=== PATIENT | female | born 1930 | race Caucasian/White ===

== ENCOUNTER 2019-01-20 09:11 | Inpatient (IN) | payer OTHER ==
[~2019-01-20] VITALS: Ht 139.7 cm; Wt 49.0 kg
[2019-01-20 09:15] VITALS: BP_SYST 132
[2019-01-20] MEDS ORDERED: BACITRACIN 1 GM OINT TP ONE (10:00)
[2019-01-20] MEDS ORDERED: MIDAZOLAM HCL 5 MG/5 ML VIAL IVP ONE ×2 (11:00→16:30)
[2019-01-20] MEDS ORDERED: KETOROLAC TROMETHAMINE 15 MG VIAL IVP ONE (12:30)
[2019-01-20] MEDS ORDERED: NACL 0.9% 1,000 ML IV ONE (13:15)
[2019-01-20] MEDS ORDERED: ETOMIDATE 20 MG/ 10 ML VIAL (AMIDATE) IVP ONE (13:15)
[2019-01-20 14:57] LABS: BASOPHILS % (AUTO) 0.9 % (0.0-2.0); EOSINOPHILS # (AUTO) 0.1 K/uL (0.0-0.4); EOSINOPHILS % (AUTO) 2.9 % (0.0-4.0); HEMOGLOBIN 12.6 g/dL (12.0-16.0); LYMPHOCYTES # (AUTO) 0.8 K/uL (1.0-5.5); LYMPHOCYTES % (AUTO) 15.7 % (20.5-51.5); MEAN CORPUSCULAR HEMOGLOBIN 35 pg (27-31); MEAN CORPUSCULAR HGB CONC 34 % (32-36); MEAN CORPUSCULAR VOLUME 102 fL (79.0-98.0); MONOCYTES # (AUTO) 0.6 K/uL (0.0-1.0); MONOCYTES % (AUTO) 12.4 % (1.7-9.3); NEUTROPHILS # (AUTO) 3.4 K/uL (1.8-7.7); NEUTROPHILS % (AUTO) 68.1 % (40.0-70.0); PLATELET COUNT (AUTO) 222 K/uL (130-430); RED BLOOD CELL COUNT(AUTO) 3.63 MIL/uL (4.2-6.2)
[2019-01-20 15:02] LABS: ANION GAP 4 (5-15); CALCIUM 8.3 mg/dL (8.4-11.0); CHLORIDE 108 mmol/L (98-107); CREATININE 0.93 mg/dL (0.55-1.30); GLUCOSE 82 mg/dL (70-99); POTASSIUM 3.9 mmol/L (3.5-5.1); SODIUM SERUM 138 mmol/L (136-145); UREA NITROGEN, BLOOD 20 mg/dL (8-21)
[2019-01-20 15:07] LABS: ALANINE AMINOTRANSFERASE 20 U/L (12-78); ALBUMIN 3.2 g/dL (3.4-4.8); ASPARTATE AMINOTRANSFERASE 38 U/L (10-37); TOTAL BILIRUBIN 0.8 mg/dL (0.0-1.0)
[2019-01-20 15:08] LABS: PROTHROMBIN TIME 10.4 SECS (9.5-12.5)
[2019-01-20] MEDS ORDERED: POLY17PO4 PO (15:28)
[2019-01-20] MEDS ORDERED: VITD2000 PO (15:28)
[2019-01-20] MEDS ORDERED: ACET-2165 PO (15:28)
[2019-01-20] MEDS ORDERED: LEVO100T9 PO (15:28)
[2019-01-20] MEDS ORDERED: MIRA50TA PO (15:28)
[2019-01-20] MEDS ORDERED: LIDOCAINE 4% PATCH TD (15:28)
[2019-01-20 15:43] VITALS: BP_SYST 156
[2019-01-20 16:02] LABS: BILIRUBIN,URINE NEGATIVE (NEGATIVE); BLOOD, URINE NEGATIVE (NEGATIVE); CLARITY/URINE CLEAR (CLEAR); GLUCOSE,URINE NEGATIVE (NEGATIVE); KETONES,URINE NEGATIVE (NEGATIVE); LEUKOCYTE ESTERASE ,URINE NEGATIVE (NEGATIVE); NITRITE, URINE NEGATIVE (NEGATIVE); PROTEIN URINE NEGATIVE (NEGATIVE); UROBILINOGEN,URINE 0.2 (0.2-1.0)
[2019-01-20 16:17] LABS: COLOR,URINE STRAW (YELLOW)
[2019-01-20] MEDS ORDERED: SEVOFLURANE 15 MIN GAS INH ONE (16:30)
[2019-01-20] MEDS ORDERED: ROPIVACAINE HCL/PF 5 MG/ML 0.5% 30 ML VIAL INJ ONE (16:30)
[2019-01-20] MEDS ORDERED: LR 1,000 ML IV.SOLN IV ONE (16:30)
[2019-01-20] MEDS ORDERED: ONDANSETRON HCL 4 MG/2 ML VIAL IVP ONE (16:30)
[2019-01-20] MEDS ORDERED: fentaNYL CITRATE 250 MCG/5 ML AMP IV ONE (16:30)
[2019-01-20] MEDS ORDERED: PROPOFOL 200MG/ 20ML VIAL (DIPRIVAN) IV ONE (16:30)
[2019-01-20] MEDS ORDERED: KETOROLAC TROMETHAMINE 30 MG VIAL IVP ONE (16:30)
[2019-01-20] MEDS ORDERED: ROCURONIUM BROMIDE 10 MG/ML (ZEMURON) IV ONE (16:30)
[2019-01-20] MEDS ORDERED: MORPHINE 4 MG/ML INJ. SYRINGE IVP PRN (17:45)
[2019-01-20] MEDS ORDERED: ACETAMINOPHEN 325 MG TABLET PO PRN (17:45)
[2019-01-20] MEDS ORDERED: ONDANSETRON HCL 4 MG/2 ML VIAL IVP PRN (17:45)
[2019-01-20] MEDS ORDERED: MORPHINE 2 MG/ML INJ. SYRINGE IVP PRN (17:45)
[2019-01-20] MEDS ORDERED: METOCLOPRAMIDE HCL 10 MG/2 ML VIAL IVP PRN (17:45)
[2019-01-20 20:00] VITALS: BP_SYST 124
[2019-01-20] MEDS: LEVOTHYROXINE SODIUM 0.1 MG TABLET PO SCH (23:48)
[2019-01-21 01:43] VITALS: BP_SYST 140
[2019-01-21] MEDS: POLYETHYLENE GLYCOL 3350, 17 GM/ POWD.PACK PO SCH (09:00)
[2019-01-21] MEDS ORDERED: IPRATROPIUM BROM 0.5 MG/2.5 ML VIAL.NEB (ATROVENT) INH PRN (10:00)
[2019-01-21] MEDS ORDERED: ALBUTEROL SULFATE 0.083% 2.5 MG/3 ML VIAL.NEB INH PRN (10:00)
[2019-01-21] MEDS ORDERED: ALBUTEROL SULFATE 0.083% 2.5 MG/3 ML VIAL.NEB INH ONE (10:00)
[2019-01-21] MEDS ORDERED: IPRATROPIUM BROM 0.5 MG/2.5 ML VIAL.NEB (ATROVENT) INH ONE (10:00)
[2019-01-21 10:20] VITALS: BP_SYST 140
[2019-01-21 12:38] VITALS: BP_SYST 161
[2019-01-21 16:26] VITALS: BP_SYST 155
[2019-01-21] MEDS: ALBUTEROL SULFATE 0.083% 2.5 MG/3 ML VIAL.NEB INH SCH ×3 (16:59→23:00)
[2019-01-21] MEDS: IPRATROPIUM BROM 0.5 MG/2.5 ML VIAL.NEB (ATROVENT) INH SCH ×3 (16:59→23:00)
[2019-01-21] MEDS ORDERED: LR 1,000 ML IV SCH (17:44)
[2019-01-21] MEDS ORDERED: MEPERIDINE HCL/PF 25 MG/ML DISP.SYRIN IVP PRN (17:45)
[2019-01-21 20:00] VITALS: BP_SYST 168
[2019-01-21] MEDS ORDERED: hydrALAZINE HCL 25 MG TABLET PO PRN (22:00)
[2019-01-21 23:27] VITALS: BP_SYST 143
[2019-01-22 00:41] VITALS: BP_SYST 157
[2019-01-22] MEDS: IPRATROPIUM BROM 0.5 MG/2.5 ML VIAL.NEB (ATROVENT) INH SCH ×4 (03:00→16:48)
[2019-01-22] MEDS: ALBUTEROL SULFATE 0.083% 2.5 MG/3 ML VIAL.NEB INH SCH ×4 (03:00→16:48)
[2019-01-22] MEDS: LEVOTHYROXINE SODIUM 0.1 MG TABLET PO SCH (06:18)
[2019-01-22 08:17] VITALS: BP_SYST 128
[2019-01-22] MEDS: POLYETHYLENE GLYCOL 3350, 17 GM/ POWD.PACK PO SCH (08:35)
[2019-01-22] MEDS ORDERED: AMOX500C2 PO (09:24)
[2019-01-22 10:51] VITALS: BP_SYST 152
[2019-01-22 15:12] VITALS: BP_SYST 152
[2019-01-22 16:15] VITALS: BP_SYST 158
== END 2019-01-22 18:00 | DRG 563 ==
LOC: SED 09:11 → SMU 15:08
PROVIDERS: ADMIT Internal Medicine Hospice and Palliative Medicine; ATTEND Internal Medicine Hospice and Palliative Medicine
PROC: 0XJ3XZZ Inspection of Left Shoulder Region, External Approach (ICD-10-PCS; 2019-01-20)
PROC: 0PSDXZZ Reposition Left Humeral Head, External Approach (ICD-10-PCS; principal; 2019-01-21 15:30)
DX: S43.015A Anterior dislocation of left humerus, initial encounter (principal); I45.2 Bifascicular block; J44.9 Chronic obstructive pulmonary disease, unspecified; I10 Essential (primary) hypertension; W18.30XA Fall on same level, unspecified, initial encounter; Y93.89 Activity, other specified; Y92.89 Other specified places as the place of occurrence of the external cause; Y99.8 Other external cause status; Z79.899 Other long term (current) drug therapy; Z86.73 Personal history of transient ischemic attack (TIA), and cerebral infarction without residual deficits; Z88.5 Allergy status to narcotic agent; Z88.8 Allergy status to other drugs, medicaments and biological substances
CPT/HCPCS: 36415; 71045; 73030; 76000; 80053; 81003; 85025; 85610-TC; 85730-TC; 86886; 86900; 86901; 87081; 93005; 94640; 94760; 99285; J1885; J2250; J2270; J2405; J2704; J3010; J3490; J7030; J7120; J7613

== ENCOUNTER 2019-03-15 08:32 | Emergency (ER) | payer OTHER ==
[~2019-03-15] VITALS: Ht 157.5 cm; Wt 45.4 kg
[~2019-03-15 08:32] MED LIST: ACET-2165 PO; AMOX500C2 PO; LEVO100T9 PO; LIDOCAINE 4% PATCH TD; MIRA50TA PO; POLY17PO4 PO; VITD2000 PO
[2019-03-15 08:38] VITALS: BP_SYST 153
--- NOTE | 2019-03-15 08:38 | NUR ---
Placed in room 4 . Placed on cardiac nurse specialist, blood pressure machine and pulse oximeter. To gown for exam. Side rails up. Report given to KIZZY Nichols.
--- NOTE | 2019-03-15 08:40 | NUR ---
Patient brought in by ambulance post mechanical fall this morning. Patient is c/o left arm pain, skin tears noted on the left arm. Denied any chest pain, SOB, loss of consciousness, or N/V. Patient is alert and oriented x3, respirations even and unlabored, speaking in full sentences. VSS, pain level 5/10. Informed of the wait time. Instructed to notify ED staff of any changes in condition or worsening of symptoms. Patient verbalized understanding.
--- NOTE | 2019-03-15 09:40 | NUR ---
Patient is resting comfortably in bed, respirations even and unlabored, speaking in full sentences.
--- NOTE | 2019-03-15 09:50 | NUR ---
ER Dr. Webb at bedside examining patient.
--- NOTE | 2019-03-15 10:00 | NUR ---
Skin tears on left arm cleansed with saline water, patted dry and covered with non-adherent dressing, wrapped with coban. Patient tolerated the procedure well.
--- NOTE | 2019-03-15 10:05 | NUR ---
X-ray done at bedside as ordered by Dr. Webb. Patient tolerated the procedure well.
[2019-03-15] MEDS ORDERED: NAPROXEN 250 MG TABLET PO SCH (10:30)
--- NOTE | 2019-03-15 10:40 | NUR ---
Daughter at bedside.
[2019-03-15] MEDS ORDERED: NAPROXEN 250 MG TABLET PO ONE (10:45)
--- NOTE | 2019-03-15 10:45 | NUR ---
Assisted patient in using the bedpan. Urine specimen collected.
[2019-03-15 11:09] VITALS: BP_SYST 153
--- NOTE | 2019-03-15 11:10 | NUR ---
Patient given written and verbal discharge instructions and verbalizes understanding. ER MD discussed with patient the results and treatment provided. Patient in stable condition. ID arm band removed. Rx of Naprosyn given. Patient educated on pain management and to follow up with PMD. Pain Scale 0/10. Opportunity for questions provided and answered. Medication side effect fact sheet provided.
== END 2019-03-15 11:10 | disposition home or self-care (01) ==
LOC: SED 08:32
DX: S51.002A Unspecified open wound of left elbow, initial encounter (principal); Z88.5 Allergy status to narcotic agent; Z88.8 Allergy status to other drugs, medicaments and biological substances; Z88.0 Allergy status to penicillin; Z79.899 Other long term (current) drug therapy; W19.XXXA Unspecified fall, initial encounter; Y93.89 Activity, other specified; Y92.89 Other specified places as the place of occurrence of the external cause; Y99.8 Other external cause status
CPT/HCPCS: 99283

== ENCOUNTER 2019-04-17 17:12 | Emergency (ER) | payer OTHER ==
[~2019-04-17] VITALS: Ht 157.5 cm; Wt 59.0 kg
[2019-04-17 17:27] VITALS: BP_SYST 163
--- NOTE | 2019-04-17 17:35 | NUR ---
Patient to ER bed 07 to gown for evaluation. Side rails up. Report given to Magdalena DURAND.
--- NOTE | 2019-04-17 17:36 | NUR ---
Pt placed on bed galloway
--- NOTE | 2019-04-17 17:38 | NUR ---
Patient brought in by ambulance in the ED d/t back pain post mechanical fall that started 2 days ago. Denied any chest pain or shortness of breath. Denied any fevers, chills, nausea or vomiting. Patient is alert and oriented x2, respirations even and unlabored, speaking in full sentences. VSS, pain level 6/10. Informed of approximate wait time. Instructed to notify ED staff for any changes in condition or worsening of symptoms while waiting to be seen by a provider. Patient verbalized understanding.
--- NOTE | 2019-04-17 18:10 | NUR ---
ER Dr. Marin at bedside examining patient.
--- NOTE | 2019-04-17 18:40 | NUR ---
Patient is taken to CT via gurney, in stable condition.
--- NOTE | 2019-04-17 19:04 | NUR ---
Report given and care transferred to KIZZY Wood.
[2019-04-17 20:50] VITALS: BP_SYST 155
--- NOTE | 2019-04-17 20:50 | NUR ---
Patient and DPOA Vanessa Mishra given written and verbal discharge instructions and verbalizes understanding. ER MD discussed with patient the results and treatment provided. Patient in stable condition. ID arm band removed. No IV Rx of [place] 5/325 given. Patient educated on pain management and to follow up with PMD. Pain Scale 0/10. Pt changed into clean adult diaper, dry clothes. Opportunity for questions provided and answered. Medication side effect fact sheet provided.
== END 2019-04-17 20:50 | disposition home or self-care (01) ==
LOC: SED 17:12
DX: M54.5 Low back pain (principal); M54.6 Pain in thoracic spine; M54.2 Cervicalgia; E07.9 Disorder of thyroid, unspecified; Z79.899 Other long term (current) drug therapy; Z88.6 Allergy status to analgesic agent; Z88.1 Allergy status to other antibiotic agents; Z88.8 Allergy status to other drugs, medicaments and biological substances
CPT/HCPCS: 72125-TC; 72128; 72131; 99284

== ENCOUNTER 2019-05-16 17:38 | Inpatient (IN) | payer OTHER ==
[~2019-05-16] VITALS: Ht 157.5 cm; Wt 46.3 kg
[2019-05-16 17:38] VITALS: BP_SYST 160
--- NOTE | 2019-05-16 17:39 | NUR ---
BROUGHT IN BY [facility] FROM [facility] AND PLACED IN BED #8, TRIAGED. REPORT GIVEN TO KYLAH
--- NOTE | 2019-05-16 17:41 | NUR ---
ER at bedside examining patient.
--- NOTE | 2019-05-16 17:50 | NUR ---
Patient brought in by BLS ambulance from [facility] for c/c of generalized weakness. Patient has confusion, AAOx2 which is stated to be baseline per EMS. Patient poor historian, but denies chest pain, SOB, nausea, vomiting, diarrhea, recent illness, cough or congestion. Patient has dry mucus membranes and appears to have dehydration. Patient on color television console monitor. Will continue to follow up and monitor.
[2019-05-16] MEDS ORDERED: NACL 0.9% 1,000 ML IV ONE (18:02)
[2019-05-16] MEDS ORDERED: ASPIRIN 81 MG TAB.CHEW PO ONE (18:15)
[2019-05-16] MEDS ORDERED: CLOPIDOGREL BISULFATE 75 MG TABLET PO ONE (18:15)
[2019-05-16] MEDS ORDERED: NITROGLYCERIN 0.4 MG TAB.SUBL SL ONE (18:15)
--- NOTE | 2019-05-16 18:15 | NUR ---
Patients daughter arrived, at bedside. Patient is cooperative but per daughter having increased confusion and patients speech not making sense. Patient makes eye contact and able to answer simple questions. Patients daughter states at the end of this month, patient is going to be moved to a board and care setting as she exceeds the assisted living function. Patient has history of renal disease, thyroid disease, and over active bladder with incontinence. Patients daughter states Dorothea White called regarding change in mentation and behavior. MD informed, patients daughter notes recent history of TIA. Will continue to follow up regarding orders.
--- NOTE | 2019-05-16 18:55 | NUR ---
Patients daughter at bedside. Patients daughter states Dorothea White called her approximately 1700 and stated she had a sudden change in behavior and orientation. I informed Dr. Webb of this finding, asked for a head CT for evaluation. Dr. Webb at bedside for speaking to patient. As of now patients daughter states no blood thinners until patient has CT to rule out. informed of this as well.
[2019-05-16 18:57] LABS: BASOPHILS # (AUTO) 0.1 K/uL (0.0-0.2); EOSINOPHILS # (AUTO) 0.1 K/uL (0.0-0.4); HEMOGLOBIN 13.8 g/dL (12.0-16.0); LYMPHOCYTES # (AUTO) 1.6 K/uL (1.0-5.5); MEAN CORPUSCULAR HEMOGLOBIN 34 pg (27-31); MONOCYTES # (AUTO) 1.2 K/uL (0.0-1.0); RED BLOOD CELL COUNT(AUTO) 4.02 MIL/uL (4.2-6.2)
[2019-05-16 19:04] LABS: ANION GAP 5 (5-15); CALCIUM 10.8 mg/dL (8.4-11.0); CHLORIDE 99 mmol/L (98-107); CREATININE 1.27 mg/dL (0.55-1.30); GLUCOSE 99 mg/dL (70-99); HEMATOCRIT 40.9 % (36-48); LYMPHOCYTES % (AUTO) 19.6 % (20.5-51.5); MEAN CORPUSCULAR HGB CONC 34 % (32-36); MEAN CORPUSCULAR VOLUME 102 fL (79.0-98.0); MONOCYTES % (AUTO) 14.6 % (1.7-9.3); NEUTROPHILS # (AUTO) 5.2 K/uL (1.8-7.7); NEUTROPHILS % (AUTO) 63.8 % (40.0-70.0); PLATELET COUNT (AUTO) 246 K/uL (130-430); RED CELL DISTRIBUTION WIDTH 13.1 % (9.0-15.0); SODIUM SERUM 135 mmol/L (136-145); UREA NITROGEN, BLOOD 26 mg/dL (8-21); WHITE BLOOD COUNT (AUTO) 8.1 K/uL (4.8-10.8)
[2019-05-16 19:18] LABS: ALANINE AMINOTRANSFERASE 12 U/L (12-78); AMYLASE 45 U/L (0-100); ASPARTATE AMINOTRANSFERASE 26 U/L (10-37); LIPASE 123 U/L (73-393); THYROID STIMULATING HORMONE 9.09 uIu/mL (0.36-3.74); TOTAL BILIRUBIN 0.7 mg/dL (0.0-1.0)
[2019-05-16] MEDS ORDERED: CALC-823 PO (19:24)
--- NOTE | 2019-05-16 19:24 | NUR ---
Medication reconciliation completed with information provided by Daughter. Any prior medication reconciliation on file was reviewed and corrected.
--- NOTE | 2019-05-16 19:25 | NUR ---
Report given from dayshift RN. VSS. Family at bedside. Will continue to monitor.
--- NOTE | 2019-05-16 19:32 | NUR ---
Patient taken to CT via gurney, escorted by [facility] semiconductor development technician.
--- NOTE | 2019-05-16 19:35 | NUR ---
Endorsed care to KIZZY Nieves.
--- NOTE | 2019-05-16 20:40 | NUR ---
Pt resting in bed. VSS. Family at bedside. Will continue to monitor.
[2019-05-16] MEDS ORDERED: DULO20CA PO (21:10)
[2019-05-16 21:57] LABS: BILIRUBIN,URINE NEGATIVE (NEGATIVE); BLOOD, URINE NEGATIVE (NEGATIVE); COLOR,URINE YELLOW (YELLOW); GLUCOSE,URINE NEGATIVE (NEGATIVE); KETONES,URINE TRACE (NEGATIVE); LEUKOCYTE ESTERASE ,URINE 2+ (NEGATIVE); NITRITE, URINE NEGATIVE (NEGATIVE); PROTEIN URINE NEGATIVE (NEGATIVE); UROBILINOGEN,URINE 0.2 (0.2-1.0)
[2019-05-16 22:15] LABS: CLARITY/URINE HAZY (CLEAR)
[2019-05-16 22:18] LABS: BACTERIA,URINE MODERATE /HPF (None Seen); MUCUS,URINE None Seen /LPF (None Seen); RBC,URINE NONE SEEN /HPF (0-3)
--- NOTE | 2019-05-16 22:20 | NUR ---
Pt resting in bed. VSS. Family at bedside. Will continue to monitor.
--- NOTE | 2019-05-16 22:42 | NUR ---
medication due given and tolerated well Addendum: 05/17/19 at 0146 by [employer] inside horticultural specialty grower not for this patient entered in error
[2019-05-16] MEDS ORDERED: ALBUTEROL SULFATE 0.083% 2.5 MG/3 ML VIAL.NEB INH PRN (23:15)
[2019-05-16] MEDS ORDERED: LEVOFLOXACIN 500 MG/D5W 100 ML IV SCH (23:15)
--- NOTE | 2019-05-16 23:30 | NUR ---
received from Er per donna with family with cc of generalized weakness and slurred spech, fixed in bed and made comfortable. cleaned and kept dry. dx of CVA and chest pain.no complaints of chest pain . with family at bedside,with call light within reach,no distress noted, refused to drink water.
--- NOTE | 2019-05-16 23:30 | NUR ---
patient received from er per donna alert but weak,responsive and oriented.with cc of generalized weakness slurred speech. dx CVA and chest pain. fixed in bed and made comfortable. with family at bedside Addendum: 05/17/19 at 0147 by [employer] logging operations inspector not for this patient entered in error in this chart
--- NOTE | 2019-05-16 23:40 | NUR ---
Admitted to Tele unit. Will go to room 121C. Belongings list completed. Complete and up to date summary report printed. SBAR report to be given at bedside with opportunity for questions.
[2019-05-17] VITALS (9 sets, daily range): BP systolic 124–159
[2019-05-17] MEDS ORDERED: ACETAMINOPHEN 325 MG TABLET PO PRN (00:15)
--- NOTE | 2019-05-17 00:30 | NUR ---
aleta.bp 159/80. telemery Addendum: 05/17/19 at 0201 by [employer] remote control mirror installer normal sinus rhythm to sinus bradycardia 58-64. will continue to monitor. with complaints of pain in the eye ,and noted minimal whitish crustto bilateral eye. will inform Dr Alfaro in am
[2019-05-17] MEDS: NACL 0.9% 1,000 ML IV SCH ×2 (00:44→14:06)
[2019-05-17] MEDS ORDERED: LEVOFLOXACIN 500 MG/D5W 100 ML IV ONE (01:43)
--- NOTE | 2019-05-17 05:10 | NUR ---
awake and unable to go back to sleep , will inform physician in am.
--- NOTE | 2019-05-17 06:03 | NUR ---
Dr Pina paged as the patient is anxious and has been anxious,with complaints to pain in the eye and foi=unt crusts in the patient eye, message left with the exchange,awaiting response
[2019-05-17 07:06] LABS: BASOPHILS # (AUTO) 0.1 K/uL (0.0-0.2); EOSINOPHILS # (AUTO) 0.1 K/uL (0.0-0.4); EOSINOPHILS % (AUTO) 1.9 % (0.0-4.0); HEMATOCRIT 35.5 % (36-48); HEMOGLOBIN 12.2 g/dL (12.0-16.0); LYMPHOCYTES # (AUTO) 1.2 K/uL (1.0-5.5); LYMPHOCYTES % (AUTO) 18.3 % (20.5-51.5); MEAN CORPUSCULAR HEMOGLOBIN 35 pg (27-31); MEAN CORPUSCULAR HGB CONC 34 % (32-36); MEAN CORPUSCULAR VOLUME 101 fL (79.0-98.0); MONOCYTES # (AUTO) 0.9 K/uL (0.0-1.0); MONOCYTES % (AUTO) 13.4 % (1.7-9.3); NEUTROPHILS # (AUTO) 4.4 K/uL (1.8-7.7); NEUTROPHILS % (AUTO) 65.4 % (40.0-70.0); PLATELET COUNT (AUTO) 206 K/uL (130-430); RED CELL DISTRIBUTION WIDTH 13.4 % (9.0-15.0); WHITE BLOOD COUNT (AUTO) 6.8 K/uL (4.8-10.8)
--- NOTE | 2019-05-17 07:22 | NUR ---
report given to the day shift rn about the patient eye redness and whitish colored coat to the eye and patient complaints of pain. also dry scabs to the eye, patient needs something to make her sleep and she did not sleep well and was restless ,
--- NOTE | 2019-05-17 07:35 | NUR ---
OPENING NOTE Patient resting in bed. Awake and OrientedX3. I.V site is intact on left arm without infiltration. Place call light within reach and bed in the lowest position. Put bed alarm on.
[2019-05-17 07:43] LABS: ALANINE AMINOTRANSFERASE 9 U/L (12-78); ALBUMIN 2.7 g/dL (3.4-4.8); ANION GAP 8 (5-15); ASPARTATE AMINOTRANSFERASE 23 U/L (10-37); CALCIUM 9.6 mg/dL (8.4-11.0); CHLORIDE 100 mmol/L (98-107); CREATININE 1.03 mg/dL (0.55-1.30); GLUCOSE 74 mg/dL (70-99); POTASSIUM 3.6 mmol/L (3.5-5.1); SODIUM SERUM 135 mmol/L (136-145); TOTAL BILIRUBIN 0.8 mg/dL (0.0-1.0); UREA NITROGEN, BLOOD 22 mg/dL (8-21)
[2019-05-17 08:02] LABS: CHOLESTEROL 172 mg/dL (<200); HDL CHOLESTEROL 71 mg/dL (>55); LDL CHOLESTEROL 84 mg/dL (<100); TRIGLYCERIDES 60 mg/dL (30-150)
[2019-05-17] MEDS ORDERED: ONDANSETRON HCL 4 MG/2 ML VIAL IVP PRN (09:15)
[2019-05-17] MEDS: DULoxetine HCL 20 MG CAPSULE.DR PO SCH (09:26)
[2019-05-17] MEDS: LEVOTHYROXINE SODIUM 0.1 MG TABLET PO SCH (09:27)
[2019-05-17] MEDS ORDERED: ENOXAPARIN SODIUM 30 MG/0.3 ML SYRINGE SUBCUT ONE (10:00)
--- NOTE | 2019-05-17 10:27 | NUR ---
Nutrition Update Celio Scale 14 noted. Pt admitted for CVA, chest pain Diet: Cardiac BMI: 18.7 kg/m2 RD to follow per nutrition care standards.
--- NOTE | 2019-05-17 17:01 | NUR ---
S.T. SWALLOW EVAL SWALLOW EVAL COMPLETED. DTR PRESENT. PT PRESENTS W/ ML ORAL DYSPHAGIA W/ PROLONGED MASTICATION. COUGHING X 1 ON INITIAL SWALLOW OF THIN LIQUIDS. NO COUGHING ON SUBSEQUENT MULTIPLE SWALLOWS OF THIN LIQUIDS. REC: MECH SOFT FINELY CHOPPED DIET. THIN LIQUIDS OK. MONITOR FOR S/S OF ASPIRATION. DTR IN AGREEMENT W/ RESULTS AND REC. NURSE JOEY NOTIFIED.
--- NOTE | 2019-05-17 18:39 | NUR ---
CLOSING NOTE Patient resting in bed. Awake and OrientedX3. 22 gauge saline lock on left hand. I.V site is intact without infiltration. patient is in stable condition. Place call light within reach and bed in the lowest position. Put bed alarm on.
--- NOTE | 2019-05-17 19:00 | NUR ---
IV LEAKING: LEFT WRIST IV REMOVED DUE TO LEAKING.DRY GAUZE APPLIED,NO BLEEDING NOTED.IV RE SITED AT RIGHT UPPER ARM USING G#22,CONTINUE IV FLUIDS ORDERED. NO PROBLEM.
[2019-05-18 00:38] VITALS: BP_SYST 151
[2019-05-18] MEDS: LEVOFLOXACIN 250 MG/D5W 50 ML IV SCH (05:44)
[2019-05-18 06:13] LABS: BASOPHILS # (AUTO) 0.1 K/uL (0.0-0.2); BASOPHILS % (AUTO) 0.8 % (0.0-2.0); EOSINOPHILS # (AUTO) 0.1 K/uL (0.0-0.4); HEMATOCRIT 39.2 % (36-48); HEMOGLOBIN 13.5 g/dL (12.0-16.0); LYMPHOCYTES # (AUTO) 1.7 K/uL (1.0-5.5); LYMPHOCYTES % (AUTO) 21.2 % (20.5-51.5); MEAN CORPUSCULAR HEMOGLOBIN 35 pg (27-31); MEAN CORPUSCULAR HGB CONC 34 % (32-36); MEAN CORPUSCULAR VOLUME 101 fL (79.0-98.0); MONOCYTES # (AUTO) 1.3 K/uL (0.0-1.0); MONOCYTES % (AUTO) 15.6 % (1.7-9.3); NEUTROPHILS % (AUTO) 61.4 % (40.0-70.0); PLATELET COUNT (AUTO) 247 K/uL (130-430); RED BLOOD CELL COUNT(AUTO) 3.87 MIL/uL (4.2-6.2); WHITE BLOOD COUNT (AUTO) 8.2 K/uL (4.8-10.8)
[2019-05-18 06:22] LABS: ALANINE AMINOTRANSFERASE 8 U/L (12-78); ANION GAP 9 (5-15); ASPARTATE AMINOTRANSFERASE 26 U/L (10-37); CALCIUM 9.7 mg/dL (8.4-11.0); CHLORIDE 98 mmol/L (98-107); CREATININE 0.95 mg/dL (0.55-1.30); GLUCOSE 87 mg/dL (70-99); POTASSIUM 3.4 mmol/L (3.5-5.1); SODIUM SERUM 135 mmol/L (136-145); TOTAL BILIRUBIN 0.8 mg/dL (0.0-1.0); UREA NITROGEN, BLOOD 15 mg/dL (8-21)
--- NOTE | 2019-05-18 06:43 | NUR ---
Patient very confused talking out of head hallucinating imaging seeing some one in corner. Reoriented many time's with little success just. Emotional at time tearful. Emotional support theraputic communication given. C/O right eye pain. Patient noted to have right eye drainage from the corner of Right eye. Documentation shows patient has had this complaint and will pass on to day shift for MD to look at eye and patient. On antibiotic IV therapy will continue to follow care of plan.
[2019-05-18 08:00] VITALS: BP_SYST 157
--- NOTE | 2019-05-18 08:00 | NUR ---
late entry initial notes rec patient asleep but arousable to stimuli. pt is confused and reality orientation rendered. resp easy and unlabored. no sob noted. bed to the lowest position and side rails up and locked. call light within reached.
[2019-05-18] MEDS: NACL 0.9% 1,000 ML IV SCH ×2 (09:01→15:12)
[2019-05-18] MEDS: LEVOTHYROXINE SODIUM 0.1 MG TABLET PO SCH (09:01)
[2019-05-18] MEDS: DULoxetine HCL 20 MG CAPSULE.DR PO SCH (09:01)
[2019-05-18] MEDS: ENOXAPARIN SODIUM 30 MG/0.3 ML SYRINGE SUBCUT SCH (09:02)
[2019-05-18] MEDS ORDERED: ASPIRIN 325 MG TABLET PO ONE (10:00)
--- NOTE | 2019-05-18 10:00 | NUR ---
rounds due meds were given and refusing at first. gave it with pudding and pamela well. pt is incontinent and keep dry and clean. call light within reached.
[2019-05-18 10:08] LABS: CHOLESTEROL 185 mg/dL (<200); HDL CHOLESTEROL 77 mg/dL (>55); LDL CHOLESTEROL 87 mg/dL (<100); TRIGLYCERIDES 53 mg/dL (30-150)
--- NOTE | 2019-05-18 12:00 | NUR ---
rounds seen by dr danielle and with orders.contacted daughter stacey for the mri quesionaires. waiting to call back. sleeps at intervals.
[2019-05-18 12:49] VITALS: BP_SYST 154
--- NOTE | 2019-05-18 12:53 | NUR ---
Dietitian Recommendations *Recommend: Mechanical soft finely chopped diet w/ Ensure Enlive TID. ONS will provide additional 1050 kcal, 60gm protein daily. *Encourage pt to increase PO intake. Please see Nutritional Assessment for details. KAYLEE, RD
[2019-05-18 16:38] VITALS: BP_SYST 163
[2019-05-18] MEDS ORDERED: cloNIDine HCL 0.1 MG TABLET PO PRN (17:45)
--- NOTE | 2019-05-18 18:30 | NUR ---
closingnotes spoke with daughter melissa and gave consent for the mri and interviewed for the questionaires. no sob noted.call light withn reached and close to the nursing station.
[2019-05-18 20:15] VITALS: BP_SYST 153
--- NOTE | 2019-05-18 20:15 | NUR ---
Opening notes Pt asleep, easily arousable. No s/s distress noted. BP elevated 153/85, Catapres 0.1mg PO given as needed. Pt incontinent of urine, pericare/skin care provided with OWNER MANAGER assist. IVF infusing at ordered rate L. AC 22G clear and patent. Pt made comfortable. Call light within reach. To monitor.
[2019-05-18 23:01] VITALS: BP_SYST 149
--- NOTE | 2019-05-18 23:10 | NUR ---
Rounds Pt asleep, no s/s distress noted. Call light within reach. Bed low, locked, alarm on. To kaushal.
[2019-05-19] MEDS: LEVOFLOXACIN 250 MG/D5W 50 ML IV SCH (00:32)
[2019-05-19] MEDS: NACL 0.9% 1,000 ML IV SCH (00:33)
--- NOTE | 2019-05-19 02:30 | NUR ---
Rounds Pt asleep, respirations even and unlabored. IVF infusing at ordered rate. Call light within reach. Safety maintained. To monitor.
--- NOTE | 2019-05-19 07:59 | NUR ---
initial notes rec patient awake with periods of confusion.ivf infusing well on the l ac. no infiltration noted. resp easy and unlabored.no sob noted. bed to the lowest position and side rails up and locked. call light within reached and patient close to the nurses station.
[2019-05-19] MEDS ORDERED: ASPIRIN 325 MG TABLET PO SCH (09:00)
--- NOTE | 2019-05-19 10:00 | NUR ---
rounds seen by dr danielle and with orders.
[2019-05-19] MEDS ORDERED: LORazepam 2 MG/ML VIAL IVP ONE (10:15)
--- NOTE | 2019-05-19 10:36 | NUR ---
rounds dr danielle saw patient and ordered ativan prior to mri.
[2019-05-19 10:52] VITALS: BP_SYST 128
--- NOTE | 2019-05-19 12:17 | NUR ---
rounds pt is back from mri via gureleuterio. sleeping soundly at this time. will continue to monitor patient.
[2019-05-19 12:23] VITALS: BP_SYST 150
[2019-05-19] MEDS: LEVOTHYROXINE SODIUM 0.1 MG TABLET PO SCH (14:22)
[2019-05-19] MEDS: DULoxetine HCL 20 MG CAPSULE.DR PO SCH (14:22)
[2019-05-19] MEDS: ENOXAPARIN SODIUM 30 MG/0.3 ML SYRINGE SUBCUT SCH (14:23)
[2019-05-19 16:25] VITALS: BP_SYST 163
--- NOTE | 2019-05-19 19:00 | NUR ---
closing notes dr danielle wrote a prescription as requested by the family. ambulance that they called will be here at 2030 as per daughter. endorsed to summer mckay re discharged tonight. no sob noted. bed to the lowest position and side rails up and locked, no sob noted.
--- NOTE | 2019-05-19 19:20 | NUR ---
OPENING NOTE RECEIVED CARE OF PT AND SBAR REPORT. PT IS RESTING IN BED WITH FAMILY AT BEDSIDE, NO S/S OF ACUTE DISTRESS. BREATHING IS UNLABORED TO ROOM AIR. VSS. POC DISCUSSED WITH PT'S FAMILY REGARDING DISCHARGE TONIGHT. SAFETY AND FALL PRECAUTIONS ARE IN PLACE. WILL MONITOR.
[2019-05-19 20:22] VITALS: BP_SYST 145
--- NOTE | 2019-05-19 20:45 | NUR ---
DISCHARGE. DISCHARGE INSTRUCTIONS GIVEN TO PT AND PT'S FAMILY, DISCHARGE INSTRUCTIONS SIGNED. PRESCRIPTIONS GIVEN TO PT'S DAUGHTER. PT'S VSS. IV TAKEN OUT, IV CATHETER TIP IS INTACT, NO BLEEDING NOTED. ALL BELONGINGS WITH PT. PT TAKEN TO AMBULANCE VIA GURNEY IN STABLE CONDITION.
--- NOTE | 2019-05-20 12:00 | NUR ---
PHYSICAL THERAPY CO-SIGN The Physical Therapy Progress Notes documented by Clothing Room Supervisor have been reviewed. Reviewed/Co-Signed by: Dru Koch PT Documentation Done by: SIMONA GUTIERREZ PTA Addendum: 05/20/19 at 1202 by Dru Koch PT Amended: Links added.
--- NOTE | 2019-05-21 12:46 | NUR ---
Discharge Follow Up Phone Call Phoned patient's daughter, Vanessa. She stated that patient was unable to walk. She asked if PT was ordered. Told her it was not as per medical record and discharge order. I asked if she wanted me to contact Johana HCP ALEJANDRO. Vanessa has Johana's number and will contact her. HCP also assisting with follow up appointments.
== END 2019-05-19 20:45 | disposition home or self-care (01) | DRG 640 ==
LOC: SED 17:38 → STU 22:23
PROVIDERS: ADMIT Internal Medicine Hospice and Palliative Medicine; ATTEND Internal Medicine Hospice and Palliative Medicine
DX: E86.0 Dehydration (principal); G93.41 Metabolic encephalopathy; N39.0 Urinary tract infection, site not specified; I24.9 Acute ischemic heart disease, unspecified; Z68.1 Body mass index [BMI] 19.9 or less, adult; E44.0 Moderate protein-calorie malnutrition; N19 Unspecified kidney failure; E03.9 Hypothyroidism, unspecified; R62.7 Adult failure to thrive; J44.9 Chronic obstructive pulmonary disease, unspecified; N32.81 Overactive bladder; Z88.5 Allergy status to narcotic agent; Z88.8 Allergy status to other drugs, medicaments and biological substances; Z79.899 Other long term (current) drug therapy
CPT/HCPCS: 36415; 70450-TC; 70551; 71045; 80053; 80061; 81000-TC; 82150-TC; 82550-TC; 83605; 83690-TC; 83880; 84443-TC; 84479; 84484; 85025; 85610-TC; 85730-TC; 87040-TC; 87081; 87086; 92610-GN; 93005; 93306; 93880; 96360; 97110-GP; 97530-GP; 99285; G0378; J1650; J1956; J2060; J7030